=== PATIENT | male | born 1955 | race Caucasian/White ===

== ENCOUNTER 2017-03-05 00:46 | Observation (INO) ==
[2017-03-05] MEDS ORDERED: NITROGLYCERIN TOP ONE (01:02)
[2017-03-05 01:13] LABS: MANUAL DIFF NEEDED? NO
[2017-03-05 01:16] LABS: BASO% 0.6 % (0.0-0.8); EOS# 0.22 X1000 (0.0-0.7); EOS% 2.7 % (0.0-10.0); HEMATOCRIT 46.1 % (42.0-52.0); HEMOGLOBIN 15.7 g/dL (14.0-18.0); IMM GRAN# 0.02 X1000 (0.0-0.04); IMM GRAN% 0.2 % (0.0-0.5); LYMPH# 2.45 X1000 (1.2-3.4); LYMPH% 30.4 % (20.5-51.1); MCH 31.7 PG (27-31); MCHC 34.1 g/dL (33-37); MCV 92.9 FL (81-99); MONO# 0.89 X1000 (0.11-0.59); MONO% 11.1 % (1.7-9.3); MPV 14.1 FL (7.4-10.4); PLT 105 X1000 (130-400); RBC 4.96 XMIL (4.7-6.1)
[2017-03-05 02:26] LABS: CALCIUM 9.1 mg/dL (8.8-10.2); TOTAL BILIRUBIN 0.2 mg/dL (0.20-1.00); TOTAL PROTEIN 6.4 g/dL (6.3-8.3)
[2017-03-05] MEDS ORDERED: LASIX IV ONE (03:06)
[2017-03-05] MEDS ORDERED: NS 1,000 ML IV ONE (06:03)
[2017-03-05] MEDS ORDERED: ZOFRAN IV PRN (06:03)
[2017-03-05] MEDS ORDERED: TYLENOL PO PRN (06:03)
[2017-03-05] MEDS ORDERED: IMDUR PO ONE (13:01)
[2017-03-05] MEDS ORDERED: LOPRESSOR PO ONE (13:01)
[2017-03-05] MEDS: NORCO-5 PO PRN ×2 (16:34→21:45)
[2017-03-05] MEDS: NS 1,000 ML IV SCH (16:34)
[2017-03-05] MEDS: HUMALOG DOSE (PARKWAY) SUBQ SCH (18:04)
[2017-03-05] MEDS ORDERED: BENICAR PO SCH (21:00)
[2017-03-05] MEDS ORDERED: FLOMAX PO SCH (21:00)
[2017-03-05] MEDS: LYRICA PO SCH (21:46)
[2017-03-06] MEDS: HUMALOG DOSE (PARKWAY) SUBQ SCH ×3 (01:05→11:48)
[2017-03-06 06:02] LABS: HEMATOCRIT 44.1 % (42.0-52.0); HEMOGLOBIN 14.7 g/dL (14.0-18.0); MCH 31.1 PG (27-31); MCHC 33.3 g/dL (33-37); MCV 93.2 FL (81-99); MPV 13.9 FL (7.4-10.4); RBC 4.73 XMIL (4.7-6.1)
[2017-03-06 06:16] LABS: CALCIUM 8.6 mg/dL (8.8-10.2); POTASSIUM 3.8 mmol/L (3.5-5.1)
[2017-03-06 06:33] VITALS: BP 196/76
[2017-03-06] MEDS ORDERED: NORCO-7.5 PO PRN (06:42)
[2017-03-06] MEDS ORDERED: ZANAFLEX PO PRN (06:42)
[2017-03-06] MEDS ORDERED: NEXIUM PO SCH (07:00)
[2017-03-06] MEDS: LYRICA PO SCH (08:53)
[2017-03-06] MEDS: APRESOLINE PO SCH ×2 (08:53→14:04)
[2017-03-06] MEDS ORDERED: LOPRESSOR PO SCH (09:00)
[2017-03-06] MEDS ORDERED: JANUVIA PO SCH (09:00)
[2017-03-06] MEDS ORDERED: IMDUR PO SCH (09:00)
[2017-03-06] MEDS ORDERED: ASPIRIN PO SCH (09:00)
[2017-03-06] MEDS: NS 1,000 ML IV SCH (11:48)
[2017-03-06] MEDS ORDERED: BENADRYL PO SCH (21:00)
[2017-03-06] MEDS ORDERED: LIPITOR PO SCH (21:00)
[2017-03-06] MEDS ORDERED: THERA M PLUS PO SCH (21:00)
== END 2017-03-06 15:10 | disposition home or self-care (01) ==
LOC: P.MEDSURG 00:46 → P.ED 00:46 → SUATTDRO 06:27
PROVIDERS: ATTEND Family Medicine

== ENCOUNTER 2019-06-19 17:12 | Observation (INO) ==
--- NOTE | 2019-06-19 17:25 | PROVIDER DOCUMENTATION ---
HPI-General Adult - General Chief Complaint: Chest Pain Stated Complaint: chest pain, sob Time Seen by Provider: 06/19/19 17:17 Source: patient, EMS Allergies/Adverse Reactions: Patient Allergies Allergy/AdvReac Type Severity Reaction Status Date / Time clonidine Allergy DRY COUGH Verified 03/22/18 16:13 codeine Allergy Unknown Verified 03/22/18 16:13 lisinopril Allergy DRY COUGH Verified 03/22/18 16:13 Penicillins Allergy RASH Verified 03/22/18 16:13 perflutren [From Definity] AdvReac Intermediate Unknown Verified 03/22/18 16:13 Home Medications: Home Medication List Medication Instructions Recorded Confirmed Last Taken Type Aspirin 81 mg PO DAILY 06/29/14 06/19/19 Unknown History Isosorbide Mononitrate [Imdur] 30 mg PO DAILY 06/29/14 06/19/19 Unknown History Metformin [Glucophage] 500 mg PO BID CC 06/29/14 06/19/19 Unknown History Metoprolol Tartrate 25 mg PO BID 06/29/14 06/19/19 Unknown History Olmesartan Medoxomil [Benicar] 10 mg PO QHS 06/29/14 06/19/19 Unknown History Tamsulosin [Flomax] 0.4 mg PO QHS 06/29/14 06/19/19 Unknown History ATORVAstatin [Lipitor] 40 mg PO QHS 03/05/17 06/19/19 Unknown History Diphenhydramine HCl [Allergy 25 mg PO QHS 03/05/17 06/19/19 Unknown History Relief] Esomeprazole [Nexium] 1 cap PO DAILY 03/05/17 06/19/19 Unknown History Hydrocodone/APAP 7.5 mg/325 mg 1 tab PO TID PRN 03/05/17 06/19/19 Unknown History [[place]-7.5] Multivitamins/Minerals [Centrum 1 each PO QHS 03/05/17 06/19/19 Unknown History Chewable] Pregabalin [Lyrica] 1 cap PO BID 03/05/17 06/19/19 Unknown History Sitagliptin [Januvia] 1 tab PO DAILY 03/05/17 06/19/19 Unknown History Tizanidine HCl 1 tab PO QHS PRN 03/05/17 06/19/19 Unknown History Tramadol [Ultram] 50 mg PO Q6H PRN PRN #20 tab 03/22/18 06/19/19 Unknown Rx - History of Present Illness -Gen Adult Nature of Presenting Problems: 63yo male presents with CC of shortness of breath. The patient reports recent illness over the last week with acute worsening with cough and shortness of breath today. The patient reports that he had non radiating chest pressure as well that was relieved with nitro today. The patient denies any fevers. Location of Pain/Injury: reports: chest Pain Radiation: reports: no radiation Quality of Pain: reports: pressure Severity: reports: moderate Onset/Duration: reports: 1-3 hours ago Timing: reports: other (improved with nitro) Modifying Factors: worse with: coughing Associated Symptoms: reports: chest pain, shortness of breath. denies: fever/chills Review of Systems - Adult - REVIEW OF SYSTEMS - ADULT Constitutional: reports: no symptoms reported. denies: fever Eyes: reports: no symptoms reported. denies: eye pain Ears, Nose, Mouth & Throat: reports: no symptoms reported. denies: throat pain Cardiovascular: reports: chest pain Respiratory: reports: cough, shortness of breath Gastrointestinal: denies: abdominal pain Genitourinary: reports: no symptoms reported Musculoskeletal: reports: neck pain Integumentary: reports: no symptoms reported Neurological: reports: no symptoms reported Psychiatric: reports: no symptoms reported Endocrine: reports: no symptoms reported Hematologic/Lymphatic: reports: no symptoms reported, other (no bleeding) Allergic/Immunologic: reports: no symptoms reported, other (no swelling) Past History - Adult - PAST MEDICAL HISTORY-ADULT Review of Records: reports: Old Records Reviewed Cardiovascular: reports: cardiac disease, HTN Musculoskeletal: reports: chronic pain Endocrine/Immune: reports: Diabetes - PRIOR SURGERIES/PROCEDURES Surgical/Procedure History: reports: recent surgery (back aug 03 2014), cardiac stent - IMMUNIZATION STATUS Childhood Immunizations: See Nurse Assessment Flu Vaccine: See Nurse Assessment - FAMILY HISTORY Family History: reviewed, not pertinent - SOCIAL HISTORY Smoking: cigarettes Physical Exam-General - PHYSICAL EXAM-ADULT Initial Vital Signs Reviewed: Yes - CONSTITUTIONAL General Appearance: alert, mild distress - EYES Eyes: negative: conjuctival exudate, photophobia, scleral icterus - HEAD, EARS, NOSE, MOUTH & THROAT HENMT: normocephalic/atraumatic, moist mucous membranes, pharynx normal. negative: hearing deficit, pharyngeal erythema - NECK Neck: normal inspection - RESPIRATORY Respiratory: no respiratory distress, no accessory muscle use, wheezing (bilater ally) - CARDIOVASCULAR Cardiovascular: regular rate, rhythm. negative: no edema (1+ LE edema) - GASTROINTESTINAL (ABDOMEN) Abdominal Exam: non tender, soft - MUSCULOSKELETAL Extremity: non-tender (LE), normal inspection (LE), swelling (1+ LE) - SKIN Integumentary: normal color, warm/dry - NEUROLOGIC Neurologic: grossly normal - PSYCHIATRIC Psych/Mental Status: normal thought content, normal thought process, anxious Progress - PLAN OF CARE/RESULTS Progress/Plan/Lab Results: Vital Signs - 8 hr 06/19/19 17:14 Temperature 98.3 F Pulse Rate 77 Respiratory Rate 21 Blood Pressure 167/79 O2 Sat by Pulse Oximetry 95 Orders Category Date Time Status Cardiac Monitoring DIRECTED Care 06/19/19 17:20 Active Oxygen Therapy- ED Nursing DIRECTED Care 06/19/19 17:20 Active Saline Loc NOW Care 06/19/19 17:20 Active CHEST-2 VIEWS [RAD] Stat Exams 06/19/19 17:20 Ordered CBC WITH ELECTRONIC DIFF [HEME] Stat Lab 06/19/19 17:20 Uncollected CK PROFILE [SP CHEM] Stat Lab 06/19/19 17:20 Uncollected COMPREHENSIVE METABOLIC PANEL [CHEM] Stat Lab 06/19/19 17:20 Uncollected PRO B-NATRIURETIC PEPTIDE Stat Lab 06/19/19 17:20 Uncollected PROTIME WITH INR [COAG] Stat Lab 06/19/19 17:20 Uncollected PTT [COAG] Stat Lab 06/19/19 17:20 Uncollected TROPONIN T Stat Lab 06/19/19 17:20 Uncollected CP/SOB/Palp >45 yrs of Age Stat Oth 06/19/19 17:19 Ordered EKG [EKG] Stat Ther 06/19/19 17:20 Ordered Result Diagrams: 06/19/19 17:35 06/19/19 17:35 - REASSESSMENT Reassessment #1 Status: other (Page sent to Cardiology Dr. Farr given chest pain with possible EKG changes) Reassessment #2 Status: other (Discussed case with Dr. Farr, who reports that he will look at the EKG and call back. Discussed case with Dr. Clark as well who does not believe current EKG indicative with STEMI. 1st troponin negative. Patient reports mild chest pressure 3/10. Will repeat EKG.) Reassessment #3 Status: other (Doctor Yordan called back and reported that patient EKG was fine. Will plan for admission to the hosptial here for shortness of breath and chest pain.) Reassessment #4 Status: other (Discussed with hospitalist team who has accepted the patient. They request we put in basic admit orders and lexiscan.) - EKG 1 Time of EKG reading by physician:: 17:18 EKG Read and Signed by:: Frank Peterson EKG Interpretation (*Must complete 3 of following elements*): Abnormal Rate: 75 Rhythm: sinus [place]: normal [place] Interval: normal ST Wave: elevated, non-specific ST changes Prior EKG Comparison: changes noted (some increase in ST from previous in V2 and V4) Departure - Departure Date of Disposition Decision: 06/19/19 Time of Disposition Decision: 19:03 DIAGNOSIS: Shortness of breath Chest pain Qualifiers: Chest pain type: unspecified Qualified Code(s): R07.9 - Chest pain, unspecified Disposition: ADMITTED INPATIENT 09 Certified Medical Emergency: Emergent Condition: Fair Referrals and Follow-Ups: None,PCP [Primary Care Provider] - - Critical Care Note This patient required my direct & personal management of CC.: No Attestation - Physician/ AG Attestation Patient care was provided by Advanced Practice Provider:: No The physician spent face to face time with patient:: Yes Advanced Practice Provider documentation review:: Supervising physician onsite and consulted in the evaluation and care of this patient. The physician did have a face to face encounter with the patient.
--- NOTE | 2019-06-19 17:32 | EKG Report ---
Test Performed on : 06/19/2019 5:17:46 PM Test Reason : cp Blood Pressure : / mmHG Vent. Rate : 075 BPM Atrial Rate : 075 BPM P-R Int : 124 ms QRS Dur : 106 ms QT Int : 416 ms P-R-T Axes : -05 -23 130 degrees QTc Int : 464 ms Normal sinus rhythm. Voltage criteria for left ventricular hypertrophy Anterior infarct , age undetermined T wave abnormality, consider lateral ischemia Abnormal ECG When compared with ECG of 05-MAR-2017 09:25, Anterior infarct is now present ST elevation now present in Anterior leads Nonspecific T wave abnormality has replaced inverted T waves in Inferior leads T wave inversion less evident in Anterior leads Confirmed by Dave Fox MD ([id number]) on 06/26/2019 1:49:47 AM
[2019-06-19 17:51] LABS: BASO# 0.04 X1000 (0.0-0.2); BASO% 0.7 % (0.0-0.8); EOS# 0.07 X1000 (0.0-0.7); EOS% 1.1 % (0.0-10.0); HEMATOCRIT 42.8 % (42.0-52.0); HEMOGLOBIN 13.9 g/dL (14.0-18.0); IMM GRAN# 0.03 X1000 (0.0-0.04); IMM GRAN% 0.5 % (0.0-0.5); LYMPH# 1.36 X1000 (1.2-3.4); LYMPH% 22.3 % (20.5-51.1); MCH 31.3 PG (27-31); MCHC 32.5 g/dL (33-37); MCV 96.4 FL (81-99); MONO# 0.78 X1000 (0.11-0.59); MONO% 12.8 % (1.7-9.3); MPV 13.2 FL (7.4-10.4); NEUT# 3.83 X1000 (1.4-6.5); NEUT% 62.6 % (42.2-75.2); PLT 103 X1000 (130-400); RBC 4.44 XMIL (4.7-6.1); RDW 13.8 % (11.5-14.5); WBC 6.11 X1000 (4.8-10.8)
[2019-06-19 18:05] LABS: INR 1.16; PROTIME 15.4 Seconds (11.0-16.0)
[2019-06-19 18:06] LABS: PTT 45.8 Seconds (22.3-41.8)
[2019-06-19 18:21] LABS: ALBUMIN 4.7 g/dL (3.5-5.0); CALCIUM 8.9 mg/dL (8.8-10.2); CREATININE 1.5 mg/dL (0.7-1.2); TOTAL BILIRUBIN 0.3 mg/dL (0.20-1.00); TOTAL PROTEIN 6.6 g/dL (6.3-8.3)
[2019-06-19] MEDS ORDERED: TESSALON PO ONE (19:24)
--- NOTE | 2019-06-19 19:25 | Diag Imaging Result Doc PS360 ---
EXAM: CHEST-2 VIEWS INDICATION: cp TECHNIQUE: 2 views COMPARISON: 2016 FINDINGS: There is evidence of prior granulomatous disease, stable. No well-defined airspace consolidation is identified. There is no discrete pleural fluid collection or pneumothorax. The cardiomediastinal silhouette and central vasculature are grossly unremarkable. IMPRESSION: No evidence of acute pathology by plain radiograph. Electronically signed by Antoine Block 06/19/2019 7:23 PM
[2019-06-19] MEDS ORDERED: DUONEB (A & A) INH PRN (20:55)
[2019-06-19] MEDS ORDERED: ROBITUSSIN-DM PO PRN (20:55)
[2019-06-19] MEDS: DUONEB (A & A) INH SCH (21:25)
[2019-06-20] MEDS ORDERED: XARELTO PO SCH
[2019-06-20] MEDS ORDERED: LIPITOR PO SCH
[2019-06-20] MEDS ORDERED: ASPIRIN PO SCH
[2019-06-20] MEDS ORDERED: NORVASC PO SCH
[2019-06-20] MEDS ORDERED: BENICAR PO SCH
[2019-06-20] MEDS ORDERED: BENADRYL PO SCH
[2019-06-20] MEDS ORDERED: FLOMAX PO SCH
[2019-06-20] MEDS ORDERED: THERA M PLUS PO SCH
[2019-06-20] MEDS ORDERED: MOBIC PO SCH
[2019-06-20] MEDS: NORCO-7.5 PO PRN ×2 (00:18→07:58)
[2019-06-20] MEDS: LYRICA PO SCH ×2 (00:39→08:00)
[2019-06-20] MEDS: DUONEB (A & A) INH SCH ×3 (03:45→15:20)
[2019-06-20] MEDS ORDERED: GLUCOPHAGE PO SCH (08:00)
--- NOTE | 2019-06-20 08:01 | EKG Report ---
Test Performed on : 06/19/2019 6:47:52 PM Test Reason : CP Blood Pressure : / mmHG Vent. Rate : 069 BPM Atrial Rate : 069 BPM P-R Int : 176 ms QRS Dur : 098 ms QT Int : 408 ms P-R-T Axes : 035 -26 058 degrees QTc Int : 437 ms Normal sinus rhythm. Voltage criteria for left ventricular hypertrophy Nonspecific ST and T wave abnormality Abnormal ECG When compared with ECG of 19-JUN-2019 17:17, (Unconfirmed) Nonspecific T wave abnormality has replaced inverted T waves in Lateral leads Unconfirmed Result
[2019-06-20] MEDS ORDERED: RANEXA PO SCH (09:00)
[2019-06-20] MEDS ORDERED: LOPRESSOR PO SCH (09:00)
[2019-06-20] MEDS ORDERED: IMDUR PO SCH (09:00)
--- NOTE | 2019-06-20 10:07 | HISTORY AND PHYSICAL ---
PRIMARY CARE PHYSICIAN: Dr. Edd Hu HOSE OPERATOR: Dr. Farr. CHIEF COMPLAINT: Cough, shortness of breath, and during the coughing spell, began having some chest tightness that was relieved by taking 1 nitroglycerin x1. HISTORY OF PRESENTING ILLNESS: This is a 63-year-old male who presents to [facility] ER via EMS with stating that he had a worsening cough and shortness of breath while he was having a coughing spell. He began having some chest pressure on the left side of his chest that was nonradiating. States he took a nitroglycerin at home, and the chest pressure was relieved. When he arrived to the emergency room, he was saturating 95% on room air. His laboratory data appears to be around his baseline. He did have a mild bump in his proBNP at 2224. His chest x-ray showed no evidence of acute pathology by plain radiograph. EKG showed normal sinus rhythm at 69. His cardiac enzymes x4 sets have been negative, and he was admitted for further evaluation and treatment and was scheduled for a stress test this morning. The patient states that he has not had any further chest pain. He did not feel that this was chest pain related, that it was due to him having a "coughing spell," and he does not want a stress test at this time and is refusing it despite education about his previous heart conditions and that he has had 2 heart stents in the past. His last stress test was in 2017 that did show a severe grade large-sized fixed defect in the distal anterior in the apical and in the inferior wall diagnostic of infarct. This is a cardiomyopathy picture and had a left ventricular ejection fraction of 30%. States he follows up with Dr. Farr from Cardiology and his last appointment was about 6 months ago and does not wish to have a Cardiolite stress test at this time. PAST MEDICAL HISTORY: Coronary artery disease, diabetes type 2, hypertension, chronic kidney disease stage 3. PAST SURGICAL HISTORY: Heart stents x2. FAMILY HISTORY: Reviewed and noncontributory. SOCIAL HISTORY: Currently lives with his son who is handicapped. Smokes a pack of cigarettes a day. Denied any alcohol or illicit drug use. ALLERGIES TO: Clonidine, codeine, lisinopril, penicillin, and perflutren. HOME MEDICATIONS: He takes amlodipine 5 mg p.o. at bedtime, aspirin 81 mg p.o. at bedtime, Lipitor 40 mg p.o. at bedtime, Benadryl 25 mg p.o. at bedtime, famotidine 40 mg p.o. with supper, [place] 7.5 one p.o. b.i.d. p.r.n., Imdur 30 mg p.o. b.i.d., meloxicam 15 mg p.o. at bedtime, metformin 1000 mg p.o. b.i.d. before meals, metoprolol 25 mg p.o. b.i.d., Centrum chewable 1 p.o. at bedtime, olmesartan 5 mg p.o. at bedtime, pregabalin 150 mg p.o. b.i.d., Ranexa 500 mg p.o. b.i.d., Xarelto 20 mg p.o. at bedtime, Januvia 50 mg 2 tablets with supper, and Flomax 0.4 mg p.o. at bedtime. LABORATORY DATA: Showed a white blood cell count of 6.11, hemoglobin 13.9, hematocrit 42.8, platelets 103,000. PT and INR of 15.4 and 1.16. Sodium 136, potassium 5, chloride 102, CO2 21, BUN of 23, creatinine 1.5, glucose 192. Cardiac enzymes x4 sets were negative. ProBNP of 2224. Chest x-ray showed no evidence of acute pathology by plain radiographs. EKG showed normal sinus rhythm at 69. REVIEW OF SYSTEMS: He denied any fever, chills, blurred vision, dizziness. He had some chest tightness, nonproductive cough and shortness of breath. Denied any abdominal pain, constipation, diarrhea, burning or hurting with urination. PHYSICAL EXAMINATION: VITAL SIGNS: On arrival, he had a temperature of 98.3 degrees, pulse 77, respirations 21, blood pressure 167/79, saturating 95% on room air. GENERAL: This is a 63-year-old male who is sitting up in the bed and answers questions appropriately. HEENT: Normocephalic, atraumatic. Normal ENT inspection. Oropharynx and nares are clear. NECK: Normal inspection. Normal range of motion. LUNGS: Clear to auscultation bilaterally with equal lung expansion and chest wall movement. HEART: Regular rate and rhythm. No murmurs, rubs, or gallops. ABDOMEN: Soft, nontender, nondistended. Bowel sounds are present x4 quadrants. MUSCULOSKELETAL: He had 5/5 strength x4 extremities. NEUROLOGICAL: The cranial nerves 2-12 appear grossly intact. ASSESSMENT: 1. Chest pain, resolved. 2. Hypertension. 3. Diabetes type 2. 4. Coronary artery disease, aware. 5. Tobacco abuse. PLAN: He was admitted to the Medical Unit and placed on telemetry, O2 per protocol, healthy heart diet. He was held n.p.o. 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 We will continue his home medications. We did discuss smoking cessation with this patient who verbalized understanding. It is most likely he will be discharged home once seen by attending. Dictated by HA Gibbons for Jose Juan Olvera MD cc: HA Gibbons MD Malcolm R. Hendricks, MD Ashish K. Basu, MD
[2019-06-20 11:28] VITALS: BP 145/86
[2019-06-20] MEDS ORDERED: ZITHROMAX 500 MG/NS 500 MG/250 ML IVPB IV ONE (13:16)
--- NOTE | 2019-06-20 15:26 | DISCHARGE SUMMARY ---
ADMISSION DATE: 06/19/2019 DISCHARGE DATE: 06/20/2019 HOSPITAL COURSE: The patient is evaluated. He had some shortness of breath and chest pain after an intense coughing episode. His workup in the ER was negative. Because of his significant cardiac history, he was placed in observation. He has ruled out with serial cardiac enzymes, but he refuses to have any noninvasive imaging. His last stress test here was, I think in 2018. He has an EF of about 25%. He declined any further cardiac testing. He felt this was all pulmonary. DISCHARGE INSTRUCTIONS: He did have some mild wheezing on exam, so we will give him azithromycin, albuterol and then encourage him to follow up with Dr. Farr his primary outsole skiver. DISCHARGE MEDICATIONS: Amlodipine 5 mg daily, aspirin 81 daily, olmesartan 5 daily, Flomax 0.4 daily, Lipitor 40 daily, meloxicam 15 at bedtime, Xarelto 20 at bedtime, Pepcid 40 daily, metformin 2 tablets b.i.d., Imdur 30 b.i.d., Januvia 100 daily, Lyrica 150 b.i.d., metoprolol 25 daily, [place] p.r.n., and ranolazine 500 b.i.d. In any case, he also will be given some Tussionex. DISCHARGE CONDITION: Stable. cc: MD Yash Wagoner MD Malcolm R. Hendricks, MD
[2019-06-20] MEDS ORDERED: JANUVIA PO SCH (17:00)
[2019-06-20] MEDS ORDERED: PEPCID PO SCH (17:00)
== END 2019-06-20 16:06 | disposition home or self-care (01) | DRG 313 ==
LOC: P.ED 17:12 → INTOOBSV 19:33 → P.MEDSURG 19:33
PROVIDERS: ATTEND Internal Medicine